=== PATIENT | male | born 1965 | race Caucasian/White ===

== ENCOUNTER 2017-03-18 15:57 | Emergency (ER) | payer MEDICARE ==
[~2017-03-18] VITALS: Ht 195.6 cm; Wt 92.8 kg
[~2017-03-18 15:57] MED LIST: ALBU18HF INH; AZIT500T5 PO; CEFD300C37 PO; FOLI-17 PO; LORA-445 PO; MULT-484 PO; THIA100T6 PO
[2017-03-18 17:01] LABS: BASOPHILS # (AUTO) 0.11 x10^3/uL (0-0.1); BASOPHILS % (AUTO) 2 % (0-1); EOSINOPHILS # (AUTO) 0.22 x10^3/uL (0-0.4); EOSINOPHILS % (AUTO) 4 % (1-7); LYMPHOCYTES # (AUTO) 1.33 x10^3/uL (1-3.4); LYMPHOCYTES % (AUTO) 21 % (22-44); MD NO; MEAN CORPUSCULAR HEMOGLOBIN 33.7 pg (27.5-34.5); MEAN CORPUSCULAR VOLUME 99.2 fL (81-97); MONOCYTES # (AUTO) 0.52 x10^3/uL (0.2-0.8); MONOCYTES % (AUTO) 8 % (2-9); NEUTROPHILS % (AUTO) 65 % (42-75); PLATELET COUNT 134 x10^3/uL (130-400); RED CELL DISTRIBUTION WIDTH 13.6 % (9.4-14.8)
[2017-03-18 17:12] LABS: ALBUMIN 3.7 g/dL (3.4-5.0); ANION GAP 12 mmol/L (5-15); CALCIUM 7.9 mg/dL (8.5-10.1); CHLORIDE 102 mmol/L (98-107)
[2017-03-18 17:17] LABS: CREATININE 0.77 mg/dL (0.7-1.3); TROPONIN I < 0.015 ng/mL (0.000-0.045)
[2017-03-18 18:54] VITALS: BP 116/64
== END 2017-03-18 19:11 | disposition home or self-care (01) ==
LOC: ED 18:50
DX: R00.2 Palpitations (principal); F10.10 Alcohol abuse, uncomplicated
CPT/HCPCS: 36415; 71045; 80048; 82040; 84484; 85025; 93005; 99285

== ENCOUNTER 2017-08-17 03:04 | Emergency (ER) | payer MEDICARE ==
[~2017-08-17] VITALS: Ht 195.6 cm; Wt 91.0 kg
[2017-08-17 03:07] VITALS: BP 106/79
== END 2017-08-17 03:42 | disposition home or self-care (01) ==
LOC: ED 03:15
DX: F10.229 Alcohol dependence with intoxication, unspecified (principal); Z48.01 Encounter for change or removal of surgical wound dressing; J44.9 Chronic obstructive pulmonary disease, unspecified; F17.210 Nicotine dependence, cigarettes, uncomplicated
CPT/HCPCS: 99281

== ENCOUNTER 2019-05-05 20:40 | Emergency (ER) | payer MEDICARE ==
[~2019-05-05] VITALS: Ht 195.6 cm; Wt 96.2 kg
[~2019-05-05 20:40] MED LIST changes: +AZIT500T10 PO; -AZIT500T5 PO; -THIA100T6 PO; +THIA100T67 PO
--- NOTE | 2019-05-06 00:01 | NUR ---
PT AMB TO ROOM FROM LOBBY WITH STEADY GAIT AT THIS TIME
[2019-05-06 00:10] VITALS: BP 154/88
--- NOTE | 2019-05-06 00:13 | NUR ---
THIS IS A 54Y M THAT COMES IN TONIGHT FOR "NOT FEELING WELL AND BEING VERY SICK." PT REPORTS SYMPTOMS STARTING 30HRS AGO. PT STS HE HAS A NON PRODUCTIVE COUGH AND FEELS TIRED. PT CONNECTED TO MONITORING CHRISTOPHER QIU.
--- NOTE | 2019-05-06 01:06 | NUR ---
Patient/Caregiver given discharge instructions and they have confirmed that they understand the instructions. Patient ambulatory with steady gait.
== END 2019-05-06 01:20 | disposition home or self-care (01) ==
LOC: ED 05-06 00:25
DX: J44.1 Chronic obstructive pulmonary disease with (acute) exacerbation (principal); F17.200 Nicotine dependence, unspecified, uncomplicated; F31.9 Bipolar disorder, unspecified; R94.31 Abnormal electrocardiogram [ECG] [EKG]; Z72.9 Problem related to lifestyle, unspecified
CPT/HCPCS: 71046; 93005; 99283

== ENCOUNTER 2019-05-08 23:52 | Emergency (ER) | payer MEDICARE ==
[~2019-05-08] VITALS: Ht 193 cm; Wt 94.5 kg
[2019-05-08 23:56] VITALS: BP 112/81
== END 2019-05-09 00:58 | disposition home or self-care (01) ==
LOC: ED 05-09 00:52
DX: R05 Cough (principal); J44.9 Chronic obstructive pulmonary disease, unspecified; F17.200 Nicotine dependence, unspecified, uncomplicated
CPT/HCPCS: 99281

== ENCOUNTER 2019-05-10 02:26 | Emergency (ER) | payer MEDICARE ==
[~2019-05-10] VITALS: Ht 195.6 cm; Wt 96.1 kg
[2019-05-10 02:31] VITALS: BP 127/87
== END 2019-05-10 05:57 | disposition home or self-care (01) ==
LOC: ED 02:56
DX: J44.1 Chronic obstructive pulmonary disease with (acute) exacerbation (principal); J15.9 Unspecified bacterial pneumonia; F17.210 Nicotine dependence, cigarettes, uncomplicated
CPT/HCPCS: 71046; 87081; 87880; 99284; 99406